=== PATIENT | female | born 1985 | race Caucasian/White ===

== ENCOUNTER 2018-10-13 08:26 | Emergency (ER) | payer MEDICAID ==
[~2018-10-13] VITALS: Ht 167.6 cm; Wt 84.1 kg
[2018-10-13 08:29] VITALS: Ht 167.6 cm; Wt 84.1 kg
[2018-10-13] MEDS ORDERED: HYDROCODON-ACE1 EA10 PO (08:54)
[2018-10-13] MEDS ORDERED: KEFLEX500 MG PO (08:54)
[2018-10-13 09:06] VITALS: BP 142/89
== END 2018-10-13 09:06 | disposition home or self-care (01) ==
LOC: D.ER 08:26
DX: K08.89 Other specified disorders of teeth and supporting structures (principal); K02.9 Dental caries, unspecified